=== PATIENT | female | born 1985 ===

== ENCOUNTER 2017-04-05 08:07 | Outpatient (CLI) | payer OTHER ==
[~2017-04-05] VITALS: Ht 157.5 cm; Wt 74.8 kg
== END 2017-04-05 08:20 | disposition home or self-care (01) ==
LOC: OFIC 805 08:07
DX: J32.0 Chronic maxillary sinusitis (principal); R09.81 Nasal congestion

== ENCOUNTER 2017-05-31 08:43 | Outpatient (CLI) | payer OTHER ==
[~2017-05-31] VITALS: Ht 152.4 cm; Wt 74.8 kg
== END 2017-05-31 09:00 | disposition home or self-care (01) ==
LOC: OFIC 805 08:43
DX: J31.0 Chronic rhinitis (principal); R09.81 Nasal congestion

== ENCOUNTER → 2020-01-31 | Outpatient (CLI) | payer OTHER | END | disposition home or self-care (01) | LOC: OFIC 805 13:00 | PROVIDERS: ATTEND Otolaryngology | DX: J32.8 Other chronic sinusitis (principal); R09.81 Nasal congestion; H69.83 Other specified disorders of Eustachian tube, bilateral ==